=== PATIENT | female | born 1955 | race Caucasian/White ===

== ENCOUNTER 2018-04-20 01:08 | Outpatient (CLI) | payer BC, SELFPAY ==
--- NOTE | 2018-04-20 10:30 | DI.MAMMO_ITS ---
SYMPTOMS/DIAGNOSIS: BREAST CA SCREENING, Z12.31 MAMMOGRAMS: Mammograms were interpreted according to the usual protocol including computer analysis with CAD system, tomosynthesis and C view imaging. Comparison is with the prior examinations. No masses or microcalcifications are seen. There is nothing to suggest malignancy. IMPRESSION: Negative mammogram. Routine screening is recommended. Category 1 , breast density B. MQSA ASSESSMENT OF FINDINGS: Negative. Category 1. Patient will receive a letter notifying them of these results. BI-RADS category B. There are scattered areas of fibroglandular density.
== END 2018-04-20 01:28 ==
PROVIDERS: PCP Internal Medicine; Visit Provider Nurse Practitioner Family
DX: Z12.31 Encounter for screening mammogram for malignant neoplasm of breast (principal)
CPT/HCPCS: 77063; 77067

== ENCOUNTER 2019-04-19 12:54 | Outpatient (REF) | payer BC, SELFPAY ==
--- NOTE | 2019-04-19 11:30 | PAPFT_PTH ---
PATIENT: HITESH CHERRY LOC: [facility] U#:[id number] AGE/SX: 63/F ROOM: RE04/19/[address]: ROSALVA UlrichP : 1955 BED: DIS: 04/19/2019 SPEC #: [id number] RECD: 04/19/19 13:14 STATUS: REE REDevi #: [id number] MEERA: 04/19/19 11:[address]: Eve Vega DEPT: ON LICENSE OF [facility] Cytology RECD BY: Fanta Morales ENTERED: 04/19/19 13:15 SP TYPE: PAPFT OTHR DR: Florin Alfred Tissues: 1 - CX/ENDOCX FOR PAP SMEARS Procedures: PAP THIN PREP/[facility] Screening HPV DNA PROBE Comments: [id number]
== END 2019-04-19 13:14 ==
LOC: LBN 12:54
PROVIDERS: PCP Internal Medicine; Visit Provider Nurse Practitioner Family
DX: Z12.4 Encounter for screening for malignant neoplasm of cervix (principal); Z11.51 Encounter for screening for human papillomavirus (HPV)
CPT/HCPCS: 88142; 87624